=== PATIENT | male | born 1945 | race Caucasian/White ===

== ENCOUNTER 2017-12-17 10:09 | Day surgery (SDC) | payer MEDICARE ==
--- NOTE | 2017-12-17 11:21 | ED Physician Documentation ---
PD HPI ABD PAIN - Stated complaint Stated Complaint: ABD PAIN - Chief complaint Chief Complaint: Abd Pain - History obtained from History obtained from: Patient, Family - History of Present Illness Timing - onset: Enter time (2300), Last night Timing - duration: Hours Timing - details: Gradual onset, Still present Quality: Sharp, Pain Location: RLQ Radiation: Right flank Improved by: Laying still Worsened by: Moving, Position, Palpation Associated symptoms: Nausea. No: Vomiting, Diarrhea Similar symptoms before: No diagnosis Recently seen: Not recently seen Review of Systems Constitutional: reports: Sweats (night sweats for the past year). denies: Fever Eyes: denies: Decreased vision Ears: denies: Ear pain Nose: denies: Rhinorrhea / runny nose, Congestion Throat: denies: Sore throat Cardiac: denies: Chest pain / pressure, Palpitations Respiratory: denies: Dyspnea, Cough GI: reports: Abdominal Pain, Nausea. denies: Vomiting, Constipation, Diarrhea : denies: Dysuria, Frequency Skin: denies: Rash Musculoskeletal: denies: Neck pain, Back pain, Extremity pain PD PAST MEDICAL HISTORY - Past Medical History Past Medical History: Yes Cardiovascular: Hypertension, Atrial fibrillation Respiratory: None - Past Surgical History Past Surgical History: No - Present Medications Home Medications: Ambulatory Orders Medication Instructions Recorded Confirmed Flecainide [Tambocar] 100 mg BID 12/17/17 12/17/17 Metoprolol Tartrate 12.5 mg BID 12/17/17 12/17/17 amLODIPine [Norvasc] 10 mg DAILY 12/17/17 12/17/17 - Allergies Allergies/Adverse Reactions: Allergies Allergy/AdvReac Type Severity Reaction Status Date / Time No Known Drug Allergies Allergy Verified 12/17/17 10:19 - Social History Does the pt smoke?: No Smoking Status: Never smoker Does the pt drink ETOH?: Yes Does the pt have substance abuse?: No - POLST Patient has POLST: No PD ED PE NORMAL - Vitals Vital signs reviewed: Yes (hypertensive diastolic) - General General: Alert and oriented X 3, No acute distress, Well developed/nourished - HEENT HEENT: Atraumatic, PERRL, EOMI - Neck Neck: Supple, no meningeal sign - Cardiac Cardiac: RRR, No murmur - Respiratory Respiratory: No respiratory distress, Clear bilaterally - Abdomen Abdomen: Soft, Non tender, No organomegaly - Back Back: No CVA TTP, No spinal TTP - Derm Derm: Normal color, Warm and dry, No rash - Extremities Extremities: No deformity, No edema - Neuro Neuro: No motor deficit, No sensory deficit Eye Opening: Spontaneous Motor: Obeys Commands Verbal: Oriented GCS Score: 15 - Psych Psych: Normal mood, Normal affect Results - Vitals Vitals: Vital Signs - 24 hr 12/17/17 10:14 Temperature 37.4 C Heart Rate 63 Respiratory 18 Rate Blood Pressure 124/96 H O2 Saturation 98 Oxygen O2 Source Room air - Labs Labs: Laboratory Tests 12/17/17 12/17/17 11:26 11:26 WBC 13.7 H RBC 4.90 Hgb 14.6 Hct 43.5 MCV 88.6 MCH 29.8 MCHC 33.6 RDW 12.6 Plt Count 172 MPV 9.6 Neut # 11.4 H Lymph # 0.7 L Erath # 1.4 H Eos # 0.0 Baso # 0.0 Absolute Nucleated RBC 0.00 Nucleated RBC % 0.0 Sodium 135 Potassium 3.9 Chloride 102 Carbon Dioxide 23 Anion Gap 10.0 BUN 21 H Creatinine 1.1 Estimated GFR (MDRD) 66 L Glucose 117 H Calcium 8.9 Total Bilirubin 1.1 H AST 22 ALT 18 Alkaline Phosphatase 60 Total Protein 7.2 Albumin 4.2 Globulin 3.0 Albumin/Globulin Ratio 1.4 Lipase 29 - Rads (name of study) CT abdomen/pel without Radiology: Prelim report reviewed (Impression impression: 1. Appendicitis with 1.3 cm appendix with inflammatory changes and appendicoliths, adjacent small amount of free fluid. 2. At least 8 subcentimeter densities in the liver too small to characterize. Recommend follow-up there is one larger than a centimeter that is a cyst. 3. Bilateral renal cyst. Nonobstructing left renal calcifications 4. diverticulosis.), EMP read indepedently, See rad report Procedures - Bedside sono Bedside sono by EMP: With use of bedside ultrasound the bladder is imaged there is no obvious stones the gallbladder is sonographically nontender and there is no evidence of pericholecystic fluid. The right kidney is imaged there are is a large cyst present it is also sonographically nontender and there is no evidence of hydronephrosis. PD MEDICAL DECISION MAKING - ED course Complexity details: reviewed results, re-evaluated patient, considered differential, d/w patient, d/w family ED course: 72-year-old male with acute right lower quadrant abdominal pain has had pain overnight he has persistence of the pain on my examination I did not find much in way of tenderness the patient's history is compelling and CT is obtained showing appendicitis. Dr. Marty Sultana is consulted in the case and will take patient to the operating room. Departure - Departure Disposition: ED Transfer to [facility] Clinical Impression: Appendicitis Qualifiers: Appendicitis type: acute appendicitis Acute appendicitis type: with localized peritonitis Qualified Code(s): K35.3 - Acute appendicitis with localized peritonitis
[2017-12-17] MEDS ORDERED: IOPAMIDOL-300 100 ML VIAL ONE (11:34)
[2017-12-17 11:35] LABS: BASOPHILS % (AUTO) 0.2 %; HGB - HEMOGLOBIN 14.6 g/dL (14.0-18.0); LYMPHOCYTES # (AUTO) 0.7 10^3/uL (1.5-3.5); LYMPHOCYTES % (AUTO) 5.4 %; MEAN CORPUSCULAR HEMOGLOBIN 29.8 pg (27.0-31.0); MEAN CORPUSCULAR HGB CONC 33.6 g/dL (32.0-36.0); MEAN CORPUSCULAR VOLUME 88.6 fL (80.0-94.0); MEAN PLATELET VOLUME 9.6 fL (7.4-11.4); MONOCYTES # (AUTO) 1.4 10^3/uL (0.0-1.0); MONOCYTES % (AUTO) 10.6 %; NEUTROPHILS # (AUTO) 11.4 10^3/uL (1.5-6.6); NEUTROPHILS % (AUTO) 83.8 %; PLT - PLATELET COUNT 172 10^3/uL (130-450); RED CELL DISTRIBUTION WIDTH 12.6 % (12.0-15.0); WHITE BLOOD COUNT 13.7 x10^3/uL (4.8-10.8)
[2017-12-17 11:51] LABS: ALBUMIN 4.2 g/dL (3.2-5.5); ALBUMIN/GLOBULIN RATIO 1.4 (1.0-2.2); BILIRUBIN,TOTAL 1.1 mg/dL (0.2-1.0); CALCIUM 8.9 mg/dL (8.5-10.3); CREATININE 1.1 mg/dL (0.6-1.2); TOTAL PROTEIN 7.2 g/dL (6.7-8.2)
[2017-12-17] MEDS ORDERED: IOPAMIDOL-300 100 ML VIAL IVP ONE (12:50)
--- NOTE | 2017-12-17 13:16 | CT Report ---
EXAM: CT ABDOMEN AND PELVIS EXAM DATE: 12/17/2017 12:42 PM. CLINICAL HISTORY: RLQ pain. COMPARISONS: None. TECHNIQUE: Routine helical CT imaging was performed through the abdomen and pelvis. IV contrast: 100M L ISOVUE 300. Enteric contrast: No. Reconstructions: Coronal and sagittal. In accordance with CT protocol optimization, one or more of the following dose reduction techniques w ere utilized for this exam: automated exposure control, adjustment of mA and/or KV based on patient s ize, or use of iterative reconstructive technique. FINDINGS: Lung Bases: Unremarkable. Mild elevation left hemidiaphragm Liver: Multiple low density areas. Largest one measuring 1.2 cm at the right lobe of the diaphragm is a cyst. At least 8 other densities less than 1 cm too small to characterize Gallbladder/Bile Ducts: Unremarkable. Spleen: Normal. Pancreas: Normal. Adrenal Glands: Normal. Kidneys: Bilateral renal cysts. Left parapelvic cysts. Left lower pole nonobstructing 3-4 millimeters calcifications. Peritoneal Cavity/Bowel: Dilated 1.3 cm appendix with appendicoliths with periappendiceal stranding, small amount of fluid in the right paracolic gutter. Diverticulosis. No significant retroperitoneal adenopathy. Small fat-containing umbilical hernia Pelvic Organs: Normal. The bladder and visualized pelvic organs are within normal limits. Vasculature: No aneurysms or other significant abnormality. Bones: DJD spine Other: None. IMPRESSION: 1. Appendicitis with 1.3 cm appendix with inflammatory changes and appendicoliths, adjacent small michael unt of free fluid. 2. At least 8 subcentimeter densities in the liver too small to characterize. Recommend follow-up The re is one larger than a centimeter that is a cyst. 3. Bilateral renal cysts. Nonobstructing left renal calcifications 4. Diverticulosis RADIA Referring Provider Line: [phone] SITE ID: [id number]
[2017-12-17] MEDS ORDERED: KETOROLAC 60 MG/2 ML VIAL IVP STA (14:01)
[2017-12-17] MEDS ORDERED: SODIUM CHLORIDE 0.9% 1,000 ML IV ONE (16:02)
[2017-12-17] MEDS ORDERED: WATER FOR INJECTION,STERILE 10 ML ONE (16:49)
[2017-12-17] MEDS ORDERED: BUPIVACAINE 0.25% PF 30 ML VIAL ONE (16:50)
[2017-12-17] MEDS ORDERED: MIDAZOLAM 2 MG/2 ML VIAL IVP ONE (17:01)
[2017-12-17] MEDS ORDERED: DEXAMETHASONE 4 MG/ML VIAL IVP ONE (17:01)
[2017-12-17] MEDS ORDERED: ONDANSETRON 4 MG/2 ML VIAL IVP ONE (17:01)
[2017-12-17] MEDS ORDERED: fentaNYL 100 MCG/2 ML VIAL IVP ONE (17:01)
[2017-12-17] MEDS ORDERED: PROPOFOL 1000 MG/100 ML IV ONE (17:01)
[2017-12-17] MEDS ORDERED: ROCURONIUM 50 MG/5 ML VIAL IVP ONE (17:01)
[2017-12-17] MEDS ORDERED: NEOSTIGMINE 1 MG/1 ML 10 ML MDV IVP ONE (17:01)
[2017-12-17] MEDS ORDERED: LIDOCAINE-MPF 2% 5 ML VIAL IM ONE (17:01)
[2017-12-17] MEDS ORDERED: GLYCOPYRROLATE 1 MG/5 ML VIAL IVP ONE (17:01)
[2017-12-17] MEDS ORDERED: PHENYLEPHRINE 50 MG/5 ML VIAL IV ONE (17:01)
[2017-12-17] MEDS ORDERED: LACTATED RINGERS 1,000 ML IV ONE ×2 (17:23→18:05)
[2017-12-17] MEDS ORDERED: BUPIVACAINE 0.25% PF 30 ML VIAL SUBQ ONE (18:07)
[2017-12-17] MEDS ORDERED: MEPERIDINE 50 MG/ML VIAL ONE (18:30)
[2017-12-17] MEDS ORDERED: ACETAMINOPHEN 1,000 MG/100 ML 100 ML IV ONE (18:42)
[2017-12-17 19:04] VITALS: BP 109/64
--- NOTE | 2017-12-18 04:46 | OPERATIVE REPORT ---
DATE OF SERVICE: 12/17/2017 Physician: Jaydon Sultana MD PREOPERATIVE DIAGNOSIS: Acute appendicitis. POSTOPERATIVE DIAGNOSIS: Acute appendicitis. PROCEDURE: Laparoscopic appendectomy. OPERATING SURGEON: Jaydon Sultana MD ANESTHESIA: General. INDICATIONS FOR SURGERY: The patient is a 72-year-old male who presents with pain in the right lower quadrant for the last 24 hours. He came to the emergency room to be evaluated. He had a CT scan of his abdomen and pelvis which shows acute appendicitis. His white blood cell count was 14,000. FINDINGS AT SURGERY: The patient had an acutely inflamed, nonperforated appendicitis. PROCEDURE: After informed consent was obtained, the patient was taken to the operating room and placed in supine position. General endotracheal anesthesia was administered. The patient's abdomen was then prepped and draped in usual sterile fashion. An infraumbilical incision was made in the skin using a scalpel and after injecting the skin with local anesthesia. A 12 mm Optiview trocar was then inserted through the incision, through the fascia, and into the abdominal cavity under direct vision. The abdomen was then insufflated. Looking inside, no bleeding was noted. A 5 mm port was placed in right and left lower quadrants under direct vision. The patient's appendix was in the upper portion of the right lower quadrant. The appendix was retroperitoneal. The peritoneal attachments were divided using the LigaSure cautery device. The mesentery of the appendix was then divided up to its base using the LigaSure cautery device. An Morley 45 stapling device was then placed across the base of the appendix, stapling and dividing it. The appendix was then placed in an Endobag and removed through the umbilical port. The right lower quadrant was evaluated, and no bleeding was noted. The ports were then removed, and no bleeding was noted at the port sites, with the abdomen then being desufflated. The umbilical fascial defect was closed using #[address] scan, he had the potential of a small, fat-containing hernia, and a small amount of preperitoneal fat was identified. Any defect was enclosed with the 0 Vicryl suture. Skin incisions were closed using 4-0 Monocryl subcuticular stitch. Dermabond was then applied. The patient was then awakened, extubated, and taken from the operating room in stable condition. ESTIMATED BLOOD LOSS: Less than 5 mL COMPLICATIONS: None. CONDITION OF THE PATIENT AT END OF SURGERY: Stable. SPECIMENS: Appendix. DRAINS OR PACKS: None. CLASSIFICATION OF WOUND: Clean, contaminated. TD: 12/17/2017 22:28
== END 2017-12-17 14:01 | disposition home or self-care (01) ==
LOC: ED 10:09 → SDS 14:00
PROVIDERS: ATTEND Surgery
PROC: 0DTJ4ZZ Resection of Appendix, Percutaneous Endoscopic Approach (ICD-10-PCS; principal; 2017-12-17 17:00)
DX: K35.80 Unspecified acute appendicitis (principal); I10 Essential (primary) hypertension; I48.91 Unspecified atrial fibrillation
CPT/HCPCS: 36415; 44970; 74177; 80053; 83690; 85025; 96374; 99283; 99284; J0131; J2175; J7120; Q9967; 81001; 81003; 87086